=== PATIENT | male | born 1970 | race Asian ===

== ENCOUNTER 2018-12-30 12:27 | Inpatient (IN) | payer BC ==
[~2018-12-30] VITALS: Ht 175.3 cm; Wt 80.7 kg
--- NOTE | 2018-12-30 12:30 | NUR ---
NAVID RA100 with c/o witnessed tonic clonic sz at rehab facility per report. Pt was brought directly to room 1b with and nursing staff at bedside. Pt had a short lasting (approx 5 sec) tonic clonic seizure upon arrival and was medicated with Ativan 2mg IVP as ordered.
[2018-12-30] MEDS ORDERED: LORAZEPAM 2 MG/1 ML VIAL ONE ×2 (12:34→12:47)
--- NOTE | 2018-12-30 12:40 | NUR ---
Pt to CT via daisy with fisheries technical officer and myself with Ativan prn ordered by .
[2018-12-30] MEDS ORDERED: LEVETIRACETAM IV 500 MG in IV DEXTROSE 5% 100 ML IV ONE (12:45)
[2018-12-30] MEDS ORDERED: LORAZEPAM 2 MG/1 ML VIAL IV ONE ×2 (12:45)
--- NOTE | 2018-12-30 13:10 | NUR ---
Pt is awake at this time, able to tell me his name when I asked, speaks minimal [place] and asked for "toilet". Pt urinated approx 1000ml via urinal.
[2018-12-30] MEDS ORDERED: GABA-532 PO (13:16)
[2018-12-30] MEDS ORDERED: FAMO20TA8 PO (13:16)
[2018-12-30] MEDS ORDERED: TRAM1TAB PO (13:16)
[2018-12-30] MEDS ORDERED: ONDA4TAB5 PO (13:16)
[2018-12-30] MEDS ORDERED: DOCU-141 PO (13:16)
[2018-12-30] MEDS ORDERED: DEXT15DR6 EACHEYE (13:16)
[2018-12-30] MEDS ORDERED: CELE200C PO (13:16)
[2018-12-30] MEDS ORDERED: ACET-2154 PO (13:16)
[2018-12-30] MEDS ORDERED: DIPH25CA83 PO (13:16)
[2018-12-30 13:20] LABS: BASOPHILS % (AUTO) 0.6 % (0.0-2.0); EOSINOPHILS % (AUTO) 0.5 % (0.0-7.0); HEMOGLOBIN 13.3 g/dL (12.5-16.3); LYMPHOCYTES # (AUTO) 1.9 K/uL (20.0-40.0); MEAN CORPUSCULAR HEMOGLOBIN 29.9 uug (23.8-33.4); MEAN CORPUSCULAR HGB CONC 33 g/dL (32.5-36.3); MEAN CORPUSCULAR VOLUME 89.8 fL (73.0-96.2); MONOCYTES # (AUTO) 0.4 K/uL (2.0-10.0); MONOCYTES % (AUTO) 6.8 % (0.0-11.0); NEUTROPHILS % (AUTO) 62.1 % (38.5-71.5); PLATELET COUNT (AUTO) 280 K/uL (152-348); RED BLOOD CELL COUNT(AUTO) 4.45 MIL/uL (4.06-5.63); WHITE BLOOD COUNT (AUTO) 6.5 K/uL (3.6-10.2)
--- NOTE | 2018-12-30 13:20 | NUR ---
Pt's friends arrived, are at bedside speaking with .
[2018-12-30 13:25] LABS: CREATININE 0.9 mg/dL (0.6-1.3); POTASSIUM 3.8 mmol/L (3.5-5.1)
--- NOTE | 2018-12-30 13:45 | NUR ---
[place] [facility] [place] [phone].
--- NOTE | 2018-12-30 14:05 | NUR ---
Pt resting with NAD noted, pt to be admitted to [facility], [facility] paged.
--- NOTE | 2018-12-30 14:35 | NUR ---
Per pt's friend's and staff member from rehab facility state pt is a baseline mental status. NAD noted at this time.
--- NOTE | 2018-12-30 14:48 | NUR ---
SBAR report given to Flores MCNALLY via telephone. Pt resting with NAD noted.
--- NOTE | 2018-12-30 14:59 | NUR ---
Pt trans to tele floor, NAD noted.
[2018-12-30] MEDS ORDERED: LORAZEPAM 2 MG/1 ML VIAL IV PRN (15:00)
[2018-12-30] MEDS ORDERED: ZOLPIDEM 5 MG TABLET PO PRN (15:00)
[2018-12-30] MEDS ORDERED: MAGNESIUM HYDROXIDE 30 ML LIQUID UDC PO PRN (15:00)
[2018-12-30] MEDS ORDERED: ACETAMINOPHEN 325 MG TABLET PO PRN (15:00)
[2018-12-30] MEDS ORDERED: Z GUARD REMEDY PASTE 57 GM TUBE TOP PRN (15:00)
[2018-12-30] MEDS ORDERED: ONDANSETRON 4 MG/2 ML VIAL IV PRN (15:00)
--- NOTE | 2018-12-30 15:00 | NUR ---
RECEIVED PATIENT BY CHAU 48 YEARS OLD MALE FROM ED WITH DX OF SEIZURES PLACED INTO BED FIXED AND MADE COMFORTABLE PATIENT IS ALERT COOPERATIVE SOMEWHAT FORGETFUL ALSO HAS LANGUAGE BARRIER SPEAKS CROATIAN BUT WITH SOME LAO.HAS A FRIEND AT HIS BEDSIDE ASSISTING WITH ADMISSION QUESTIONARES ORIENTED TO FACILITY PROTOCOL NO SEIZURES AT THIS TIME HAS A HEPLOCK ON HIS LEFT HAND WHICH IS PATENT WITH NO S/S OF INFILTERATION ON SITE.MADE COMFORTABLE.
[2018-12-30 15:38] VITALS: BP 139/85
[2018-12-30] MEDS: IV D5 1/2 NS 1000 ML 1,000 ML IV PRN (16:15)
--- NOTE | 2018-12-30 17:32 | NUR ---
RESTING PATIENT INSTRUCTED THAT HE IS NOTHING BY MOUTH PER ORDERS IVF IN PROGRESS ORDERED WITH NO S/S OF INFILTERATION ON SITE TELE IS SR WITH NO ECTOPY WILL CONTINUE TO OBSERVE.
--- NOTE | 2018-12-30 20:00 | NUR ---
Received patient laying in bed. HOB elevated. A/O x 3, Slovenian speaking with very little Hebrew. In no acute distress noted. In room air, TELE SR at 79. Patient is NPO status. IV on the left hand patent and intact. IV fluids infusing. Rails padded. Safety initiated. Call light within reach. Will continue to monitor.
[2018-12-30 20:09] VITALS: BP 141/91
[2018-12-30] MEDS: LEVETIRACETAM IV 500 MG in IV DEXTROSE 5% 100 ML IV SCH (20:09)
[2018-12-30] MEDS: HYDROCODONE/APAP 5-325MG TABLET PO PRN (20:09)
--- NOTE | 2018-12-30 20:30 | NUR ---
C/O of head ache. [place] given. Will continue to monitor.
--- NOTE | 2018-12-30 20:43 | NUR ---
RAGHU Johnston at bedside.
[2018-12-30] MEDS ORDERED: TRAMADOL HCL PO SCH (20:45)
[2018-12-30] MEDS ORDERED: ACETAMINOPHEN PO SCH (20:45)
[2018-12-30] MEDS: ATORVASTATIN 40 MG TABLET PO SCH (21:04)
--- NOTE | 2018-12-30 21:07 | NUR ---
Bedside swallow eval done. Patient pass. Diet changed to Regular Diet per ROOF TECHNICIAN Preston. Will closely monitor.
[2018-12-30 23:58] LABS: *BILIRUBIN,URIN NEGATIVE (NEGATIVE); *BLOOD, URINE NEGATIVE (NEGATIVE); *CLARITY,URINE CLEAR (CLEAR); *COLOR,URINE YELLOW (YELLOW); *KETONES,URINE NEGATIVE (NEGATIVE); *UROBILINOGEN,URINE 0.2 E.U./dl (NORMAL); LEUKOCYTE ESTERASE ,URINE NEGATIVE (NEGATIVE); NITRITE, URINE NEGATIVE (NEGATIVE); PH,URINE 6.5 (5.0-8.0); UGLUCOSE NEGATIVE (NEGATIVE)
[2018-12-31 04:00] VITALS: BP 125/73
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
[2018-12-31] MEDS: PANTOPRAZOLE SODIUM 40 MG TABLET.DR PO SCH (06:05)
[2018-12-31] MEDS: IV D5 1/2 NS 1000 ML 1,000 ML IV PRN (06:24)
[2018-12-31 06:49] LABS: BASOPHILS % (AUTO) 0.4 % (0.0-2.0); EOSINOPHILS % (AUTO) 0.7 % (0.0-7.0); HEMATOCRIT 41.4 % (36.7-47.1); HEMOGLOBIN 14.2 g/dL (12.5-16.3); LYMPHOCYTES # (AUTO) 2.3 K/uL (20.0-40.0); MEAN CORPUSCULAR HEMOGLOBIN 30.6 uug (23.8-33.4); MEAN CORPUSCULAR HGB CONC 34 g/dL (32.5-36.3); MEAN CORPUSCULAR VOLUME 89.5 fL (73.0-96.2); MONOCYTES # (AUTO) 0.4 K/uL (2.0-10.0); MONOCYTES % (AUTO) 7.4 % (0.0-11.0); NEUTROPHILS # (AUTO) 3.1 K/uL (1.8-8.9); NEUTROPHILS % (AUTO) 52.5 % (38.5-71.5); PLATELET COUNT (AUTO) 294 K/uL (152-348); RED BLOOD CELL COUNT(AUTO) 4.63 MIL/uL (4.06-5.63)
[2018-12-31 07:01] LABS: PHOSPHOROUS 4.3 mg/dL (2.5-4.9); POTASSIUM 4.1 mmol/L (3.5-5.1)
[2018-12-31 07:09] LABS: THYROID STIMULATING HORMONE 3.057 mIU/mL (0.358-3.740)
--- NOTE | 2018-12-31 07:30 | NUR ---
Received patient in bed awake. No complaints of pain and not in distress at this time. Reminded patient to press call button if he needs help.
[2018-12-31] MEDS: LEVETIRACETAM IV 500 MG in IV DEXTROSE 5% 100 ML IV SCH (08:42)
[2018-12-31] MEDS: CELECOXIB 200 MG CAPSULE PO SCH ×2 (08:42→17:13)
[2018-12-31] MEDS: GABAPENTIN 100 MG CAPSULE PO SCH ×3 (08:42→17:13)
[2018-12-31] MEDS: ASPIRIN 81 MG TAB.CHEW PO SCH (08:42)
[2018-12-31] MEDS: HYDROCODONE/APAP 5-325MG TABLET PO PRN ×2 (09:26→20:13)
[2018-12-31 11:32] VITALS: BP 111/64
[2018-12-31] MEDS: POLYVINYL ALCOHOL OPHT DROPS 15 ML BOTTLE EACHEYE PRN (13:24)
[2018-12-31 15:27] VITALS: BP 109/61
--- NOTE | 2018-12-31 17:22 | NUR ---
EEG done. Patient tolerated well. Will ff/up results
--- NOTE | 2018-12-31 18:11 | NUR ---
Patient is A&Ox3, Albanian speaking but understands and speaks a little bit of Maori. Seen and evaluated by PT, patient unable to walk due to tremors per PT. Not in distress this shift. No episodes of seizures.
[2018-12-31 20:00] VITALS: BP 137/86
[2018-12-31] MEDS: ATORVASTATIN 40 MG TABLET PO SCH (20:12)
[2018-12-31] MEDS: LEVETIRACETAM 500 MG TABLET PO SCH (20:12)
--- NOTE | 2018-12-31 20:33 | NUR ---
Received patient laying in bed. HOB elevated. Neuro chamberlain patient is A/O x 3, Malay speaking with very little Icelandic. Family at bedside. In no acute distress noted. Reports pain in the neck, back and knee. In room air, TELE SR at 83. IV on the left hand patent and intact. IV fluids infusing. Rails padded. Safety initiated. Call light within reach. Will continue to monitor.
[2019-01-01] VITALS: BP 111/65
[2019-01-01] MEDS: HYDROCODONE/APAP 5-325MG TABLET PO PRN ×3 (00:09→21:05)
[2019-01-01] MEDS: POLYVINYL ALCOHOL OPHT DROPS 15 ML BOTTLE EACHEYE PRN (00:10)
[2019-01-01 04:00] VITALS: BP 127/70
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
[2019-01-01] MEDS: PANTOPRAZOLE SODIUM 40 MG TABLET.DR PO SCH (06:17)
[2019-01-01] MEDS: IV D5 1/2 NS 1000 ML 1,000 ML IV PRN (06:18)
[2019-01-01 06:35] LABS: BASOPHILS % (AUTO) 0.4 % (0.0-2.0); EOSINOPHILS % (AUTO) 0.6 % (0.0-7.0); HEMATOCRIT 41.6 % (36.7-47.1); LYMPHOCYTES # (AUTO) 3.5 K/uL (20.0-40.0); LYMPHOCYTES % (AUTO) 47.1 % (20.5-51.5); MEAN CORPUSCULAR HEMOGLOBIN 30.7 uug (23.8-33.4); MEAN CORPUSCULAR HGB CONC 34 g/dL (32.5-36.3); MEAN CORPUSCULAR VOLUME 90.8 fL (73.0-96.2); MONOCYTES # (AUTO) 0.5 K/uL (2.0-10.0); MONOCYTES % (AUTO) 6.9 % (0.0-11.0); NEUTROPHILS # (AUTO) 3.3 K/uL (1.8-8.9); PLATELET COUNT (AUTO) 282 K/uL (152-348); RED BLOOD CELL COUNT(AUTO) 4.57 MIL/uL (4.06-5.63); WHITE BLOOD COUNT (AUTO) 7.4 K/uL (3.6-10.2)
[2019-01-01 06:45] LABS: CREATININE 0.9 mg/dL (0.6-1.3); PHOSPHOROUS 4.2 mg/dL (2.5-4.9); POTASSIUM 4.2 mmol/L (3.5-5.1)
[2019-01-01] MEDS: GABAPENTIN 100 MG CAPSULE PO SCH ×3 (09:51→17:16)
[2019-01-01] MEDS: LEVETIRACETAM 500 MG TABLET PO SCH ×2 (09:51→20:24)
[2019-01-01] MEDS: CELECOXIB 200 MG CAPSULE PO SCH ×2 (09:51→17:16)
[2019-01-01] MEDS: ASPIRIN 81 MG TAB.CHEW PO SCH (09:51)
[2019-01-01 12:03] VITALS: BP 129/79
[2019-01-01 15:35] VITALS: BP 111/64
--- NOTE | 2019-01-01 17:39 | NUR ---
Pt able to move and repositioned R side of body without noted difficulty, however complaining of L arm and L leg numbness and tingling stated its been that way since Saturday. Pt has language translation rosalino on phone. Able to feed self without noted difficulty. Medicated for pain with norco once this shift. calm and cooperative. bed low and locked. call light within reached. Will cont to monitor.
--- NOTE | 2019-01-01 19:00 | NUR ---
AWAKE, ALERTX4, NO COMPLAINTS RESTING COMFORTABLY.
[2019-01-01 20:00] VITALS: BP 110/65
[2019-01-01] MEDS: ATORVASTATIN 40 MG TABLET PO SCH (20:24)
--- NOTE | 2019-01-01 21:00 | NUR ---
HAD 1 BOWEL MOVEMENT,NO COMPLAINTS.
--- NOTE | 2019-01-02 05:12 | NUR ---
SLEPT MOST OF THE NITE.NO SEIZURE.
[2019-01-02 06:10] LABS: BASOPHILS % (AUTO) 0.5 % (0.0-2.0); EOSINOPHILS # (AUTO) 0.1 K/uL (0.0-0.7); EOSINOPHILS % (AUTO) 0.7 % (0.0-7.0); HEMATOCRIT 42.1 % (36.7-47.1); LYMPHOCYTES # (AUTO) 3.2 K/uL (20.0-40.0); LYMPHOCYTES % (AUTO) 41.2 % (20.5-51.5); MEAN CORPUSCULAR HEMOGLOBIN 29.9 uug (23.8-33.4); MEAN CORPUSCULAR HGB CONC 33 g/dL (32.5-36.3); MEAN CORPUSCULAR VOLUME 89.8 fL (73.0-96.2); MONOCYTES # (AUTO) 0.6 K/uL (2.0-10.0); MONOCYTES % (AUTO) 7.3 % (0.0-11.0); NEUTROPHILS # (AUTO) 3.9 K/uL (1.8-8.9); NEUTROPHILS % (AUTO) 50.3 % (38.5-71.5); PLATELET COUNT (AUTO) 280 K/uL (152-348); RED BLOOD CELL COUNT(AUTO) 4.69 MIL/uL (4.06-5.63); WHITE BLOOD COUNT (AUTO) 7.7 K/uL (3.6-10.2)
[2019-01-02 06:31] VITALS: BP 98/62
[2019-01-02 06:33] LABS: CREATININE 0.9 mg/dL (0.6-1.3); PHOSPHOROUS 4.3 mg/dL (2.5-4.9); POTASSIUM 4.1 mmol/L (3.5-5.1)
[2019-01-02] MEDS: LEVETIRACETAM 500 MG TABLET PO SCH ×2 (08:35→20:29)
[2019-01-02] MEDS: CELECOXIB 200 MG CAPSULE PO SCH ×2 (08:35→17:14)
[2019-01-02] MEDS: ASPIRIN 81 MG TAB.CHEW PO SCH (08:35)
[2019-01-02] MEDS: GABAPENTIN 100 MG CAPSULE PO SCH ×3 (08:35→17:14)
[2019-01-02] MEDS: PANTOPRAZOLE SODIUM 40 MG TABLET.DR PO SCH (08:35)
[2019-01-02] MEDS ORDERED: ASPI81TA31 PO (08:48)
[2019-01-02] MEDS ORDERED: ATOR40TA PO (08:48)
[2019-01-02] MEDS ORDERED: LEVE500T9 PO (08:48)
[2019-01-02 11:40] VITALS: BP 119/73
[2019-01-02 15:40] VITALS: BP 117/58
--- NOTE | 2019-01-02 18:38 | NUR ---
NO NOTED EPISODES OF SEIZURES. EATING WELL. ABLE TO PULL SELF UP IN BED INDEPENDENTLY. PT WILL BE PICKED UP FOR DISCHARGE HOME TONIGHT AT 2100 VIA TAXI AND KYOTO FRIEND WILL BE ASSISTING. BED LOW AND LOCKED. CALL LIGHT WITHIN REACHED. WILL CONT TO MONITOR.
[2019-01-02 20:00] VITALS: BP 114/75
[2019-01-02] MEDS: ATORVASTATIN 40 MG TABLET PO SCH (20:29)
--- NOTE | 2019-01-02 21:00 | NUR ---
Patient was given his PM meds. Family member is here. DC paperwork given. Belongings were returned.
--- NOTE | 2019-01-02 21:15 | NUR ---
Patient left the floor in the wheelchair. Taxi was called.
== END 2019-01-02 22:00 | disposition home or self-care (01) | DRG 101 ==
LOC: ER 12:29 → TELE3 14:54 → MEDSURG3 01-01 13:03
PROVIDERS: ADMIT Student in an Organized Health Care Education/Training Program; ATTEND Student in an Organized Health Care Education/Training Program
DX: R56.9 Unspecified convulsions (principal); Z87.820 Personal history of traumatic brain injury; F44.4 Conversion disorder with motor symptom or deficit; G25.2 Other specified forms of tremor; R53.1 Weakness; T14.90XS Injury, unspecified, sequela; V49.60XS Unspecified car occupant injured in collision with unspecified motor vehicles in traffic accident, sequela; E78.5 Hyperlipidemia, unspecified; M48.061 Spinal stenosis, lumbar region without neurogenic claudication; R26.2 Difficulty in walking, not elsewhere classified; E78.1 Pure hyperglyceridemia
CPT/HCPCS: 36415; 70450; 71045; 83735; 84100; 84443; 85025; 87086; 92526; 92610; 93005; 95819; 97110; 97112; 97530; A4217; A4663; G0378; J1953; J2060; J3490; J7060

== ENCOUNTER 2019-01-09 15:51 | Emergency (ER) | payer BC ==
[~2019-01-09] VITALS: Ht 170.2 cm; Wt 79.4 kg
[~2019-01-09 15:51] MED LIST: ACET-2154 PO; ASPI81TA31 PO; ATOR40TA PO; CELE200C PO; DEXT15DR6 EACHEYE; DIPH25CA83 PO; DOCU-141 PO; FAMO20TA8 PO; GABA-532 PO; LEVE500T9 PO; ONDA4TAB5 PO; TRAM1TAB PO
[2019-01-09] MEDS ORDERED: IV NORMAL SALINE 1000 ML BAG IV ONE (16:00)
--- NOTE | 2019-01-09 16:00 | NUR ---
PT IS UNCONSIOUS AND UNRESPONSIVE, BIB OUTPATIENT THERAPY STAFF WHO STATE THAT THE PT HAD A SYNCOPAL EPISODE DURING A THERAPY SESSION WHILE IN A SITTING POSITION. PER STAFF REPORT, NO HEAD INJURY WAS NOTED. PT IS HYPERTENSIVE, ER MD AWARE. NO RESPIRATORY DISTRESS NOTED.
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
--- NOTE | 2019-01-09 16:12 | NUR ---
PT TAKEN TO RADIOLOGY FOR CT SCAN.
[2019-01-09 16:17] LABS: BASOPHILS % (AUTO) 0.4 % (0.0-2.0); EOSINOPHILS % (AUTO) 0.4 % (0.0-7.0); HEMATOCRIT 41.6 % (36.7-47.1); LYMPHOCYTES # (AUTO) 3.2 K/uL (20.0-40.0); LYMPHOCYTES % (AUTO) 36.3 % (20.5-51.5); MEAN CORPUSCULAR HEMOGLOBIN 30.2 uug (23.8-33.4); MEAN CORPUSCULAR HGB CONC 34 g/dL (32.5-36.3); MEAN CORPUSCULAR VOLUME 89.5 fL (73.0-96.2); MONOCYTES # (AUTO) 0.6 K/uL (2.0-10.0); MONOCYTES % (AUTO) 7.3 % (0.0-11.0); NEUTROPHILS # (AUTO) 4.9 K/uL (1.8-8.9); NEUTROPHILS % (AUTO) 55.6 % (38.5-71.5); PLATELET COUNT (AUTO) 315 K/uL (152-348); RED BLOOD CELL COUNT(AUTO) 4.65 MIL/uL (4.06-5.63); WHITE BLOOD COUNT (AUTO) 8.7 K/uL (3.6-10.2)
--- NOTE | 2019-01-09 16:23 | NUR ---
PT BACK IN ER FROM RADIOLOGY.
[2019-01-09 16:25] LABS: CREATININE 0.9 mg/dL (0.6-1.3); POTASSIUM 3.9 mmol/L (3.5-5.1)
--- NOTE | 2019-01-09 16:30 | NUR ---
Unable to reconcile home medication list, there is no information about current medications available at this time.
[2019-01-09 16:31] LABS: BILIRUBIN,DIRECT 0.1 mg/dL (0.0-0.2); BILIRUBIN,TOTAL 0.5 mg/dL (0.2-1.0); TOTAL PROTEIN, SERUM 8.3 g/dL (6.4-8.2)
--- NOTE | 2019-01-09 16:52 | NUR ---
NADIRA CLAUDIO, HOSPITALIST, AT BEDSIDE FOR PT EVAL. NOTIFIED BY HOSPITALIST OF PT'S SZ ACTIVITY - TWITCHING OF BUE. AIRWAY PATENT, NO RESPIRATORY DISTRESS NOTED. ER AWARE. AWAITING ORDERS.
--- NOTE | 2019-01-09 16:53 | NUR ---
SEIZURE PRECAUTIONS OBSERVED.
[2019-01-09] MEDS ORDERED: LORAZEPAM 2 MG/1 ML VIAL ONE (16:57)
[2019-01-09] MEDS ORDERED: LORAZEPAM 2 MG/1 ML VIAL IV ONE (17:00)
--- NOTE | 2019-01-09 17:14 | NUR ---
PT AWAKE AND TALKING NOW. VSS. PT REQUESTING TO USE THE RESTROOM, PROVIDED W/ URINAL.
--- NOTE | 2019-01-09 17:15 | NUR ---
Facesheet and Clinical Summary faxed to Rebel at [facility] transfer lindsey. He advised that they are at capacity and the wait for a bed could be "1-2 days" but stated he would proceed with the transfer process.
--- NOTE | 2019-01-09 17:30 | NUR ---
Danelle dudley in ED - 01/09/19 at 1820 by KHARI Facesheet and Clinical Summary faxed to Tobias at [facility].
--- NOTE | 2019-01-09 17:30 | NUR ---
Facesheet and Clinical Summary faxed to Tobias at [facility] ([facility]).
--- NOTE | 2019-01-09 17:35 | NUR ---
Pt is awake at this time. Pt's friend is translating for the pt, pt's home medication list updated with information provided by pt and his friend.
--- NOTE | 2019-01-09 17:37 | NUR ---
Facesheet and Clinical Summary faxed to [facility].
--- NOTE | 2019-01-09 17:49 | NUR ---
SOLE speaking with MD from [facility].
--- NOTE | 2019-01-09 17:57 | NUR ---
PT SITTING UP IN BED, STATING "I'M OKAY" AND VERBALIZES DESIRE TO GO HOME.
--- NOTE | 2019-01-09 18:08 | NUR ---
RECEIVED CALL FROM [facility] - PT HAS BEEN ACCEPTED BY DR. RAI. AWAITING CALL FROM DR RAI FOR TO DR CRUZ. TRANSFER TEAM ETA 1830.
--- NOTE | 2019-01-09 18:13 | NUR ---
PRISCILLA ORTEGA SPEAKING W/ DR. RAI FROM [facility].
--- NOTE | 2019-01-09 18:18 | NUR ---
[facility] to perform 24 hour continuous EEG, unable to accept patient at this time. ERMD notified.
--- NOTE | 2019-01-09 19:01 | NUR ---
Patient Tranfers to outside Facility Physician: DR. RAI Location: [facility]
--- NOTE | 2019-01-09 19:01 | NUR ---
TRANSFER REPORT GIVEN TO CCT FROM [facility], CALI MCNALLY.
== END 2019-01-09 19:06 | disposition short-term general hospital (02) ==
LOC: ER 15:53
DX: R55 Syncope and collapse (principal); G40.909 Epilepsy, unspecified, not intractable, without status epilepticus; Z79.82 Long term (current) use of aspirin; Z79.899 Other long term (current) drug therapy
CPT/HCPCS: 36415; 70450; 71045; 80048; 80076; 83605; 84484; 85025; 85730; 86850; 86900; 86901; 87040; 93005; 96361; 96374; 99285; J2060; 70030-TC; A4663; J7030